=== PATIENT | female | born 1935 | race Two or more races ===

== ENCOUNTER 2016-10-30 19:19 | Inpatient (IN) | payer MEDICARE, OTHER ==
[~2016-10-30] VITALS: Ht 162.6 cm; Wt 62.6 kg
[2016-10-30 20:18] LABS: ALANINE AMINOTRANSFERASE 12 U/L (14-59); ALBUMIN 3.4 g/dL (3.4-5.0); ALKALINE PHOSPHATASE 117 U/L (50-136); ASPARTATE AMINOTRANSFERASE 12 U/L (15-37); BILIRUBIN,DIRECT 0.1 mg/dL (0.0-0.2); BILIRUBIN,TOTAL 0.2 mg/dL (0.2-1.0); CALCIUM 9.2 mg/dL (8.5-10.1); CARBON DIOXIDE 32 mmol/L (21-32); CHLORIDE 101 mmol/L (98-107); GLUCOSE 256 mg/dL (74-106); POTASSIUM 3.7 mmol/L (3.5-5.1); SODIUM SERUM 141 mmol/L (136-145); TOTAL PROTEIN, SERUM 7.7 g/dL (6.4-8.2); UREA NITROGEN, BLOOD 10 mg/dL (7-18)
[2016-10-30 20:20] LABS: BASOPHILS % (AUTO) 0.5 % (0.0-2.0); EOSINOPHILS # (AUTO) 0.1 K/uL (0.0-0.7); EOSINOPHILS % (AUTO) 1.2 % (0.0-7.0); HEMATOCRIT 39.6 % (37-47); HEMOGLOBIN 13.5 G/DL (12.0-16.0); LYMPHOCYTES # (AUTO) 2.7 K/uL (20.0-40.0); LYMPHOCYTES % (AUTO) 39.7 % (20.5-51.5); MEAN CORPUSCULAR HEMOGLOBIN 29.2 UUG (27.0-31.0); MEAN CORPUSCULAR HGB CONC 34 g/dL (32.0-37.0); MEAN CORPUSCULAR VOLUME 85.8 FL (81.0-99.0); MONOCYTES # (AUTO) 0.5 K/uL (2.0-10.0); MONOCYTES % (AUTO) 7.5 % (0.0-11.0); NEUTROPHILS # (AUTO) 3.4 K/uL (1.8-8.9); NEUTROPHILS % (AUTO) 51.1 % (38.5-71.5); PLATELET COUNT (AUTO) 159 K/UL (150-450); RED BLOOD CELL COUNT(AUTO) 4.61 MIL/UL (4.2-5.4); RED CELL DISTRIBUTION WIDTH 12.3 % (11.5-14.5); WHITE BLOOD COUNT (AUTO) 6.7 K/UL (4.0-11.2)
[2016-10-30 20:26] LABS: ETHANOL < 3 MG/DL (0-0)
[2016-10-30] MEDS ORDERED: BENA20TA2 PO (20:48)
[2016-10-30] MEDS ORDERED: DOCU-170 PO (20:48)
[2016-10-30] MEDS ORDERED: MAG-55 PO (20:48)
[2016-10-30] MEDS ORDERED: MAGN400O4 PO (20:48)
[2016-10-30] MEDS ORDERED: TEMA15CA PO (20:48)
[2016-10-30] MEDS ORDERED: BLOO-360 IN (20:48)
[2016-10-30] MEDS ORDERED: LORA0.5T PO (20:48)
[2016-10-30] MEDS ORDERED: ACET325T53 PO (20:48)
[2016-10-30 20:52] LABS: ACETAMINOPHEN < 2.0 ug/mL (10-30)
--- NOTE | 2016-10-30 21:45 | NUR ---
MRSA and Urine collected, specimens to laboratory.
--- NOTE | 2016-10-30 21:52 | NUR ---
Pt. admitted to [facility], under care of Dr. Sotelo Belongs List completed
[2016-10-30 21:54] LABS: *BILIRUBIN,URIN NEGATIVE (NEGATIVE); *BLOOD, URINE NEGATIVE (NEGATIVE); *CLARITY,URINE CLEAR (CLEAR); *COLOR,URINE LIGHT YELLOW (YELLOW); *KETONES,URINE NEGATIVE (NEGATIVE); *PROTEIN,URINE NEGATIVE (NEGATIVE); *UROBILINOGEN,URINE 0.2 E.U./dl (NORMAL); LEUKOCYTE ESTERASE ,URINE NEGATIVE (NEGATIVE); NITRITE, URINE NEGATIVE (NEGATIVE)
[2016-10-30 22:03] LABS: *AMPHETAMINE, URINE NEGATIVE (NEGATIVE); *BARBITURATE, URINE NEGATIVE (NEGATIVE); *CANNABINOID, URINE NEGATIVE (NEGATIVE); *COCCAINE, URINE NEGATIVE (NEGATIVE); *OPIATE, URINE NEGATIVE (NEGATIVE); *PHENCYCLIDINE SCREEN,URINE NEGATIVE (NEGATIVE)
[2016-10-30 22:10] LABS: UGLUCOSE 1+ (NEGATIVE)
[2016-10-30 22:11] LABS: SQUAMOUS EPITHELIAL CELL,UR FEW /HPF (NONE SEEN); WBC,URINE 0-3 /HPF (0-3)
[2016-10-30 22:14] VITALS: BP 172/87
[2016-10-30] MEDS ORDERED: LORAZEPAM 0.5 MG TABLET PO PRN (22:15)
[2016-10-30] MEDS ORDERED: MAGNESIUM HYDROXIDE 30 ML LIQUID UDC PO PRN (22:15)
[2016-10-30] MEDS ORDERED: ACETAMINOPHEN 325 MG TABLET PO PRN (22:15)
[2016-10-30] MEDS ORDERED: TEMAZEPAM 7.5 MG CAPSULE PO PRN (22:15)
[2016-10-30] MEDS ORDERED: MAG HYDROX/AL HYDROX/SIMETH 30 ML LIQUID UDC PO PRN (22:15)
--- NOTE | 2016-10-30 23:53 | NUR ---
GPS: Admitted to unit earlier a 81yr.old female under the care of / on a 72 hour hold for DTS/GD. Pt. is alert to self. Confused,forgetful but pleasant. Cooperative during admission process. Belongings list completed. Necessary paperworks signed. Denies wanting to hurt self. Re-assured prn. Safety emphasized. No resp.republican to notify. Will continue to monitor.
[2016-10-30 23:54] VITALS: BP 165/80
[2016-10-31] MEDS ORDERED: DEXTROSE 50% 50 ML DISP.SYRIN IV PRN (00:15)
[2016-10-31] MEDS: CLONIDINE HCL 0.1 MG TABLET PO PRN (00:18)
[2016-10-31] MEDS ORDERED: CLONIDINE HCL 0.1 MG TABLET ONE (00:21)
[2016-10-31] MEDS ORDERED: TEMAZEPAM 7.5 MG CAPSULE ONE (00:22)
[2016-10-31] MEDS: BLOOD SUGAR DIAGNOSTIC 1 EACH STRIP VI SCH ×4 (06:36→20:28)
[2016-10-31 07:52] VITALS: BP 127/70
[2016-10-31 08:16] LABS: THYROID STIMULATING HORMONE 0.446 mIU/mL (0.358-3.740)
[2016-10-31 10:42] LABS: MAGNESIUM 1.7 mg/dL (1.8-2.4); PHOSPHOROUS 3.2 mg/dL (2.5-4.9)
[2016-10-31] MEDS: DOCUSATE SODIUM 100 MG CAPSULE PO SCH ×2 (11:23→17:14)
[2016-10-31] MEDS: METFORMIN HCL 500 MG TABLET PO SCH ×2 (11:23→17:14)
[2016-10-31] MEDS: BENAZEPRIL HCL 20 MG TABLET PO SCH (11:24)
[2016-10-31] MEDS: INSULIN REGULAR, HUMAN 300 UNIT/3 ML VIAL SQ PRN ×2 (11:36→17:14)
[2016-10-31] MEDS ORDERED: QUETIAPINE FUMARATE 25 MG TABLET PO PRN (12:00)
[2016-10-31] MEDS ORDERED: MAGNESIUM OXIDE 400 MG TABLET PO ONE (15:00)
[2016-10-31 15:35] VITALS: BP 128/69
[2016-10-31] MEDS: DONEPEZIL 5 MG TABLET PO SCH (20:28)
[2016-10-31] MEDS: MIRTAZAPINE 15 MG TABLET PO SCH (20:28)
[2016-10-31 20:46] VITALS: BP 135/76
[2016-11-01] MEDS: BLOOD SUGAR DIAGNOSTIC 1 EACH STRIP VI SCH ×4 (06:31→20:25)
[2016-11-01 07:30] VITALS: BP 158/87
[2016-11-01] MEDS: METFORMIN HCL 500 MG TABLET PO SCH ×2 (08:22→17:13)
[2016-11-01] MEDS: DOCUSATE SODIUM 100 MG CAPSULE PO SCH ×2 (08:22→16:35)
[2016-11-01] MEDS: BENAZEPRIL HCL 20 MG TABLET PO SCH (08:24)
[2016-11-01 15:39] VITALS: BP 144/79
[2016-11-01] MEDS: INSULIN REGULAR, HUMAN 300 UNIT/3 ML VIAL SQ PRN ×2 (16:44→20:27)
--- NOTE | 2016-11-01 16:44 | NUR ---
GPS: Monitoring FBS: AXV=450, given 4 unit of Insulin per sliding scale, continue to monitor FBS, no s/s of hypo/hyperglycemia noted, continue with treatment plan.
[2016-11-01 20:00] VITALS: BP 159/75
[2016-11-01] MEDS: MIRTAZAPINE 15 MG TABLET PO SCH (20:29)
[2016-11-01] MEDS: QUETIAPINE FUMARATE 25 MG TABLET PO SCH (20:29)
[2016-11-01] MEDS: CLONIDINE HCL 0.1 MG TABLET PO PRN (20:29)
[2016-11-01] MEDS: DONEPEZIL 5 MG TABLET PO SCH (20:29)
[2016-11-02] MEDS: BLOOD SUGAR DIAGNOSTIC 1 EACH STRIP VI SCH ×4 (06:41→20:32)
[2016-11-02 07:30] VITALS: BP 115/66
[2016-11-02 08:22] LABS: BASOPHILS # (AUTO) 0.1 K/uL (0.0-8.0); BASOPHILS % (AUTO) 0.9 % (0.0-2.0); EOSINOPHILS # (AUTO) 0.1 K/uL (0.0-0.7); EOSINOPHILS % (AUTO) 1.9 % (0.0-7.0); HEMATOCRIT 40.6 % (37-47); HEMOGLOBIN 13.5 G/DL (12.0-16.0); LYMPHOCYTES # (AUTO) 2.9 K/uL (20.0-40.0); LYMPHOCYTES % (AUTO) 47.8 % (20.5-51.5); MEAN CORPUSCULAR HEMOGLOBIN 28.7 UUG (27.0-31.0); MEAN CORPUSCULAR HGB CONC 33 g/dL (32.0-37.0); MEAN CORPUSCULAR VOLUME 86.1 FL (81.0-99.0); MONOCYTES # (AUTO) 0.5 K/uL (2.0-10.0); MONOCYTES % (AUTO) 8.5 % (0.0-11.0); NEUTROPHILS # (AUTO) 2.5 K/uL (1.8-8.9); NEUTROPHILS % (AUTO) 40.9 % (38.5-71.5); PLATELET COUNT (AUTO) 155 K/UL (150-450); RED BLOOD CELL COUNT(AUTO) 4.72 MIL/UL (4.2-5.4); RED CELL DISTRIBUTION WIDTH 12.3 % (11.5-14.5); WHITE BLOOD COUNT (AUTO) 6.1 K/UL (4.0-11.2)
[2016-11-02] MEDS: DOCUSATE SODIUM 100 MG CAPSULE PO SCH ×2 (08:26→16:33)
[2016-11-02] MEDS: METFORMIN HCL 500 MG TABLET PO SCH ×2 (08:26→17:11)
[2016-11-02] MEDS: BENAZEPRIL HCL 20 MG TABLET PO SCH (08:27)
[2016-11-02 08:38] LABS: ALBUMIN 3.1 g/dL (3.4-5.0); BILIRUBIN,TOTAL 0.3 mg/dL (0.2-1.0); CALCIUM 9.1 mg/dL (8.5-10.1); CREATININE 0.9 mg/dL (0.6-1.3); MAGNESIUM 2.2 mg/dL (1.8-2.4); POTASSIUM 4.6 mmol/L (3.5-5.1); TOTAL PROTEIN, SERUM 7.1 g/dL (6.4-8.2)
[2016-11-02] MEDS: INSULIN REGULAR, HUMAN 300 UNIT/3 ML VIAL SQ PRN ×2 (11:53→20:56)
--- NOTE | 2016-11-02 13:32 | NUR ---
UR Note: Faxed clinicals to [facility], BIANKA Baker [ ext [phone] ]. Awaiting authorization.
--- NOTE | 2016-11-02 14:16 | NUR ---
Initial discharge instructions: The patient resides at an independent fci community [[address] [facility] [address] [place] [address]]. ELYSIA received a call from Eulalia with [facility] stating that she is managing the patient's case. Per Eulalia, the patient's PCP believes that the patient requires a higher level of care with 24 hour supervision. Eulalia requested that an inquiry be sent to Thania at [facility]: . ELYSIA spoke with BIANKA Morin with [employer] ext.[phone] who stated that they will be authorizing SNF placement. ELYSIA will speak with patient and MD regarding most appropriate discharge plan. SS will form a safe and proper discharge.
[2016-11-02 20:00] VITALS: BP 151/66
[2016-11-02] MEDS: DONEPEZIL 5 MG TABLET PO SCH (20:15)
[2016-11-02] MEDS: MIRTAZAPINE 15 MG TABLET PO SCH (20:15)
[2016-11-02] MEDS: QUETIAPINE FUMARATE 25 MG TABLET PO SCH (20:15)
--- NOTE | 2016-11-02 22:00 | NUR ---
received to care, sitting on her bed, pleasant upon approach. minimal interactions noted with peers. stays in room, by self. compliant with medications, and staff direction. as of 0, she appears to be asleep. no distress noted. will continue to monitor closely.
--- NOTE | 2016-11-03 06:00 | NUR ---
slept 7.25 hours, total. remains asleep, but easy to awaken. no distress noted. will continue to monitor closely.
[2016-11-03] MEDS: BLOOD SUGAR DIAGNOSTIC 1 EACH STRIP VI SCH ×4 (06:14→20:49)
[2016-11-03 07:30] VITALS: BP 144/65
[2016-11-03] MEDS: METFORMIN HCL 500 MG TABLET PO SCH ×2 (08:34→18:23)
[2016-11-03] MEDS: DOCUSATE SODIUM 100 MG CAPSULE PO SCH ×2 (08:34→17:00)
[2016-11-03] MEDS: BENAZEPRIL HCL 20 MG TABLET PO SCH (08:35)
[2016-11-03] MEDS: INSULIN REGULAR, HUMAN 300 UNIT/3 ML VIAL SQ PRN ×4 (08:36→20:51)
[2016-11-03 15:09] VITALS: BP 103/74
--- NOTE | 2016-11-03 16:22 | NUR ---
UR Note: Faxed clinicals today to [facility], BIANKA Baker [ ext [phone] ]. Awaiting authorization #.
[2016-11-03 20:31] VITALS: BP 154/78
[2016-11-03] MEDS: DONEPEZIL 5 MG TABLET PO SCH (20:39)
[2016-11-03] MEDS: MIRTAZAPINE 15 MG TABLET PO SCH (20:39)
[2016-11-03] MEDS: QUETIAPINE FUMARATE 25 MG TABLET PO SCH (20:40)
--- NOTE | 2016-11-03 22:00 | NUR ---
received to care, lying in bed, pleasant upon approach. no interactions noted with peers. stays in room, by self. compliant with medications, and staff direction. as of 2200, she appears to be asleep. no distress noted. will continue to monitor closely.
--- NOTE | 2016-11-04 06:00 | NUR ---
slept 6 hours, total. remains asleep, but easy to awaken. no distress noted. will continue to monitor closely.
[2016-11-04] MEDS: BLOOD SUGAR DIAGNOSTIC 1 EACH STRIP VI SCH ×4 (06:04→20:03)
[2016-11-04 07:30] VITALS: BP 141/61
[2016-11-04] MEDS: INSULIN REGULAR, HUMAN 300 UNIT/3 ML VIAL SQ PRN ×4 (08:11→20:35)
[2016-11-04] MEDS: METFORMIN HCL 500 MG TABLET PO SCH ×2 (08:13→18:05)
[2016-11-04] MEDS: BENAZEPRIL HCL 20 MG TABLET PO SCH (08:13)
[2016-11-04] MEDS: DOCUSATE SODIUM 100 MG CAPSULE PO SCH ×2 (08:13→17:00)
--- NOTE | 2016-11-04 12:24 | NUR ---
UR Note: Faxed clinicals today to [facility], IBANKA Baker [ ext [phone] ]. Awaiting authorization #.
[2016-11-04 16:00] VITALS: BP 145/77
[2016-11-04 19:43] VITALS: BP 144/76
[2016-11-04] MEDS: DONEPEZIL 5 MG TABLET PO SCH (20:03)
[2016-11-04] MEDS: MIRTAZAPINE 15 MG TABLET PO SCH (20:03)
[2016-11-04] MEDS: QUETIAPINE FUMARATE 25 MG TABLET PO SCH (20:03)
--- NOTE | 2016-11-04 22:00 | NUR ---
received to care, sitting in the day room, watching tv, with peers, pleasant upon approach. compliant with medications, and staff direction. as of 0, she appears to be asleep. no distress noted. will continue to monitor closely.
--- NOTE | 2016-11-05 06:00 | NUR ---
slept 7.5 hours.
[2016-11-05] MEDS: BLOOD SUGAR DIAGNOSTIC 1 EACH STRIP VI SCH ×4 (06:16→20:08)
[2016-11-05 07:30] VITALS: BP 120/66
[2016-11-05] MEDS: AMLODIPINE 5 MG TABLET PO SCH (09:21)
[2016-11-05] MEDS: DOCUSATE SODIUM 100 MG CAPSULE PO SCH ×2 (09:21→16:53)
[2016-11-05] MEDS: BENAZEPRIL HCL 20 MG TABLET PO SCH (09:22)
[2016-11-05] MEDS: METFORMIN HCL 500 MG TABLET PO SCH ×2 (09:22→16:53)
[2016-11-05] MEDS: glipiZIDE 5 MG TABLET PO SCH ×2 (09:23→16:53)
--- NOTE | 2016-11-05 09:34 | NUR ---
UR Note: Faxed clinicals today to [facility], BIANKA Baker [ ext [phone] ]. Awaiting authorization #.
[2016-11-05] MEDS: INSULIN REGULAR, HUMAN 300 UNIT/3 ML VIAL SQ PRN ×2 (12:41→20:11)
[2016-11-05 15:06] VITALS: BP 123/67
[2016-11-05 20:00] VITALS: BP 127/75
[2016-11-05] MEDS: QUETIAPINE FUMARATE 25 MG TABLET PO SCH (20:08)
[2016-11-05] MEDS: MIRTAZAPINE 15 MG TABLET PO SCH (20:08)
[2016-11-05] MEDS: DONEPEZIL 5 MG TABLET PO SCH (20:08)
--- NOTE | 2016-11-06 06:34 | NUR ---
GPS: REMAIN CALM AND COOPERATIVE. SLEPT 06:30 HRS THROUGH THE NIGHT.SHOWERED THIS MORNING. CONTINUE MONITORING FOR SAFETY.
[2016-11-06] MEDS: BLOOD SUGAR DIAGNOSTIC 1 EACH STRIP VI SCH ×2 (06:46→11:51)
[2016-11-06 07:30] VITALS: BP 134/73
[2016-11-06] MEDS: DOCUSATE SODIUM 100 MG CAPSULE PO SCH (08:31)
[2016-11-06] MEDS: BENAZEPRIL HCL 20 MG TABLET PO SCH (08:31)
[2016-11-06] MEDS: METFORMIN HCL 500 MG TABLET PO SCH (08:31)
[2016-11-06 08:32] VITALS: BP 134/73
[2016-11-06] MEDS: AMLODIPINE 5 MG TABLET PO SCH (08:32)
[2016-11-06] MEDS: glipiZIDE 5 MG TABLET PO SCH (08:33)
--- NOTE | 2016-11-06 08:59 | NUR ---
Probation Supervisor ELYSIA attempted to contact [employer] yesterday (11/05/16) several times in order to obtain authorization for transportation for the patient to be transferred to [facility] however continued to get transferred repeatedly without any solution. ELYSIA called [employer] again today to obtain authorization and spoke with Gabriel in customer service who stated the they usually need 48 hour notice for transportation. ELYSIA informed Gabriel that she has been trying to get in contact with the authorization department since yesterday with no success. Gabriel transferred SW to Angela Jones . ELYSIA spoke with Angela who provided [facility] with authorization #[id number].
--- NOTE | 2016-11-06 10:31 | NUR ---
DC Note: The patient will be discharged today to [facility] ([facility]) [[address] [place] [address] ] via ambulance. Spoke with Dylan Jones who provided [facility] with authorization #[id number]. Spoke with Jamar at [facility] who stated that they will pick up driver the patient today at 1:00 pm and take her to the facility. Spoke with Yumi in admissions at the facility who stated that they will be able to accept the patient today. RN must call and ask for the RN supervisor winter for report. ELYSIA spoke with Eulalia at [facility] and informed her of the patient's discharge plan. ELYSIA spoke with the patient and she is aware and agreeable with the discharge plan. The patient will follow-up at the facility with oral and maxillofacial surgery resident Dr. Swann and psychiatrist Dr. Sanchez.
== END 2016-11-06 12:30 | DRG 885 ==
LOC: ER 19:25 → GPS 21:31
PROVIDERS: ADMIT Psychiatry & Neurology Psychiatry; ATTEND Internal Medicine
DX: F29 Unspecified psychosis not due to a substance or known physiological condition (principal); F01.50 Vascular dementia, unspecified severity, without behavioral disturbance, psychotic disturbance, mood disturbance, and anxiety; E11.65 Type 2 diabetes mellitus with hyperglycemia; D68.59 Other primary thrombophilia; I69.351 Hemiplegia and hemiparesis following cerebral infarction affecting right dominant side; F32.9 Major depressive disorder, single episode, unspecified; F41.9 Anxiety disorder, unspecified; G30.9 Alzheimer's disease, unspecified; E83.42 Hypomagnesemia; F02.80 Dementia in other diseases classified elsewhere, unspecified severity, without behavioral disturbance, psychotic disturbance, mood disturbance, and anxiety; I10 Essential (primary) hypertension; E88.09 Other disorders of plasma-protein metabolism, not elsewhere classified; Z79.84 Long term (current) use of oral hypoglycemic drugs; Z79.899 Other long term (current) drug therapy; Z87.440 Personal history of urinary (tract) infections
CPT/HCPCS: 36415; 80307; 83735; 84100; 84443; 85025; 93005; 97001; G0480-TC; G6040-TC; J1815